=== PATIENT | female | born 1960 | race Caucasian/White ===

== ENCOUNTER 2020-08-13 10:00 | Outpatient (RCR) | payer MEDICARE, MEDICAID, SELFPAY ==
--- NOTE | 2020-09-20 14:47 | MHC.PT.DC ---
[facility] [place] Office [place] Office [place] Office [address] Marli Naik 140 [facility] [phone] F: [phone] F: [phone] F: [phone] F: [phone] Physical Therapy Discharge Report Diagnosis: Pain in Right leg Date of Surgery: N/A Date of Evaluation: 07/14/20 Date of Discharge: 08/31/20 Treatments to Date: 8 Cancellations to Date: 0 No Shows to Date: 1 Discharge Status: Discharge Summary: Pt elected to stop PT at this time. Electronically signed by: Dustin Stoddard, PT Please sign and return to therapist. Thank you for your referral.
== END 2020-09-20 14:47 | disposition home or self-care (01) ==
LOC: HO.PTCHIC 10:00
PROVIDERS: PCP Internal Medicine; Visit Provider Internal Medicine
DX: M79.604 Pain in right leg (principal)
CPT/HCPCS: 97035; 97110; 97140

== ENCOUNTER 2021-06-17 08:00 | Outpatient (RCR) | payer MEDICARE, MEDICAID, SELFPAY ==
--- NOTE | 2021-09-07 13:42 | MHC.PT.DC ---
[facility] [place] Office [place] Office [place] Office [address] Marli Naik [address] [phone] F: [phone] F: [phone] F: [phone] F: [phone] Physical Therapy Discharge Report Diagnosis: CERVICALGIA Date of Surgery: Date of Evaluation: 04/18/21 Date of Discharge: 06/17/21 Treatments to Date: 11 Cancellations to Date: 0 No Shows to Date: 1 Discharge Status: Independent with HEP Discharge Summary: Overall pain is 3/10 with ADLs, I with HEP and able to self correct posture/manage s/s. Pt progressed well over the course of skilled PT making progress on impairments and functional limitations resulting in an improved quality of life. Pt is I with HEP and appropriate to d/c to HEP at this time. Electronically signed by: Dustin Stoddard, PT Please sign and return to therapist. Thank you for your referral.
== END 2022-02-22 09:53 | disposition home or self-care (01) ==
LOC: HO.PTCHIC 08:00
PROVIDERS: PCP Internal Medicine; Visit Provider Internal Medicine
DX: M54.2 Cervicalgia (principal)
CPT/HCPCS: 97110; 97140; 97162; 97530

== ENCOUNTER 2022-01-23 18:53 | Emergency (ER) | payer MEDICARE, MEDICAID, SELFPAY ==
[2022-01-23 20:22] VITALS: BP 160/62; PULSE 67; RESP 18; TEMP 36.9; O2SAT 98; BMI 32.5
== END 2022-01-24 01:16 | disposition left against medical advice (07) ==
LOC: HO.ED 22:53
PROVIDERS: Emergency Provider Emergency Medicine; PCP Internal Medicine
DX: K62.5 Hemorrhage of anus and rectum (principal)
CPT/HCPCS: 99281; 99282

== ENCOUNTER 2022-06-27 15:07 | Emergency (ER) | payer OTHER, SELFPAY ==
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
[2022-06-27 15:13] VITALS: BP 128/58; BP 171/76; PULSE 64; PULSE 72; RESP 18; TEMP 36.6; O2SAT 96; O2SAT 98; BMI 32.5
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
[2022-06-27] MEDS: Acetaminophen 325 MG TABLET 975 MG PO (15:50)
[2022-06-27] MEDS: Ondansetron ODT 4 MG TAB.RAPDIS TRANSLINGU (15:50)
--- NOTE | 2022-06-27 16:03 | ECG_ITS ---
Test Reason : cp Blood Pressure : / mmHG Vent. Rate : 068 BPM Atrial Rate : 068 BPM P-R Int : 158 ms QRS Dur : 082 ms QT Int : 382 ms P-R-T Axes : 041 -04 023 degrees QTc Int : 406 ms Normal sinus rhythm Normal ECG When compared with ECG of 14-JAN-2016 10:49, No significant change was found Referred By: Juanita Henning Electronically Signed By:NAVDEEP HARRIS
== END 2022-06-27 21:41 | disposition home or self-care (01) ==
PROVIDERS: Emergency Provider Emergency Medicine
DX: R07.89 Other chest pain (principal); M54.50 Low back pain, unspecified; R51.9 Headache, unspecified; M25.512 Pain in left shoulder; M54.2 Cervicalgia; Z79.899 Other long term (current) drug therapy
CPT/HCPCS: 70450; 72100; 72125; 73030; 73080; 93005; 99283; 99284

== ENCOUNTER 2022-07-17 09:20 | Emergency (ER) | payer OTHER, SELFPAY ==
[2022-07-17 12:00] VITALS: BP 103/60; PULSE 87; RESP 18; TEMP 36.3; O2SAT 100; BMI 29.9
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
== END 2022-07-17 16:03 | disposition home or self-care (01) ==
PROVIDERS: Emergency Provider Internal Medicine; PCP Internal Medicine
DX: Z04.1 Encounter for examination and observation following transport accident (principal); G44.309 Post-traumatic headache, unspecified, not intractable; F07.81 Postconcussional syndrome; M79.10 Myalgia, unspecified site
CPT/HCPCS: 99282; 99283

== ENCOUNTER 2025-01-23 09:20 | Outpatient (AMB) | payer MEDICARE, SELFPAY ==
--- NOTE | 2025-01-23 10:08 | MHC.OFFWIV ---
Intake Vital Signs 01/23/25 10:11 Height 5 ft 2 in BMI Reason not done Patient refused/unable BP 142/80 H Blood Pressure Location Lt brachial Position Sitting Pulse 70 Pulse Source Pulse Oximeter Temp 98.1 F Temp Source Oral Pulse Oximetry (%) 97 Oxygen Delivery Method Room Air Intake Visit Reasons: EP Rectal bleeding Allergies carbamazepine [From TEGRETOL] Allergy (Unknown, Verified 01/23/25 10:08) SWELLING loratadine [From CLARITIN] Allergy (Unknown, Verified 01/23/25 10:08) UNKNOWN DUST, LATEX Allergy (Unknown, Uncoded 05/09/22 16:44) Swelling Do you need a note to return to daycare/school/sports/work: No HPI EP Rectal bleeding HPI Details This is a 64-year-old female patient who presents to the walk-in clinic today with rectal pain and bleeding with wiping. She states this started about 1 week ago, following having some constipation and hard stool. She states currently she is voiding and having soft BMs, however rectal area is painful when she has BMs. She denies any recent fevers, illnesses, vomiting, or diarrhea. Review of Systems Const All systems reviewed & are unremarkable except as noted in HPI and below Physical Exam Vital Signs: Last Vital Signs Temp 98.1 F 01/23/25 10:11 Pulse 70 01/23/25 10:11 BP 142/80 H 01/23/25 10:11 Pulse Ox 97 01/23/25 10:11 Oxygen Delivery Method Room Air 01/23/25 10:11 Const General: cooperative, healthy appearing, comfortable and no acute distress HEENT Head: Yes normal to inspection Resp Effort & Inspection: normal respiratory effort Auscultation: clear to auscultation bilaterally Cardio Rate: regular rate Rhythm: regular rhythm GI Rectal Exam - Female: External hemorrhoid(s) present and tenderness Skin General skin exam: no rashes or lesions noted Psych Appearance: grossly normal Mental Status: mental status grossly normal Speech and movement: Normal speech and movement present Assessment & Plan Assessment & Plan (1) Thrombosed external hemorrhoid: Code(s): K64.5 - Perianal venous thrombosis Plan: Topical lidocaine/hydrocortisone cream ordered. Patient educated on application/use of this. We reviewed fiber intake, adequate hydration, avoiding straining, proper cleansing. She has a follow up with her PCP at [facility] in 10 days on 02/02, whom she can follow-up with as needed for this. All questions were answered and patient verbalizes understanding and agrees to plan. Medications: New lidocaine HCl-hydrocortison ac 3-0.5 % (Lidocort) Apply to affected area twice a day. 1 appl topical BID 28.3 grams 0RF K64.5 - Perianal venous thrombosis Coding Level of Care Code Est Pt Level 4 (77938) Diagnoses Thrombosed external hemorrhoid K64.5
--- OUTSIDE RECORDS SUMMARY | 2025-01-23 10:08 | XMS_ITS | Encounter Summary ---
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 Installer Name Role Phone Kym Severino MD Primary Care Prov ider Reason for Visit * Reason Onset Date Comments Constipation 01/16/2025 Rectal Bleeding 01/16/2025 Abdominal Pain 01/16/2025 Encounter Details Date Type Department Care Team (Late st Contact Info) Description 01/16/2025 Telephone Adult Medicine [address] [phone] Kym Severino MD [address] [place] [phone] Constipation; Rectal Bleeding; Abdominal Pain Social History Tobacco Use Types Packs/Day Years Used Date Smoking Tobacco: Never Smokeless Tobacco: Never Alcohol Use Standard Drinks/Week Comments No 0 (1 standard drink = 0.6 oz pur e alcohol) Comments Unknown Sex and Gender Information Value Date Recorded Sex Assigned at Not on file Legal Sex Female 1:32 AM EST Gender Identity Not on file Sexual Orientation Not on file documented as of this encounter Progress Notes * Radha Pulido RN - 01/21/2025 9:50 AM EDT Spoke with the pt Bleeding from rectum not using any thing to sooth or help with the hemorrhoids Stomach is bloated at the top of the stomach Moves bowels every day, but when she pushes the stool she has bleeding. Advised OTC for home care of hemorrhoids. She is scheduled to see PCP on 02/02, added bloated concerns to the appt note * Radha Pulido RN - 01/16/2025 10:59 AM EDT Left vm for pt to return my call. * Gregory Dailey - 01/16/2025 10:40 AM EDT Patient call requires triage: Symptoms patient is presenting: constipation , rectal bleeding and abdominal pain How long has patient had these symptoms?: since 01/15/25 For ALL patients calling to schedule any appointment (routine, sick visit, follow up, consult, etc.) in the outpatient setting please ask the following questions: Do you have fever of higher than 101, sore throat with difficulty swallowing or severe shortness ofbreath? no If YES to any of these above symptoms, send a message to triage and do not book. Red dot. If no, an audio or video visit should be booked. Have you had close contact with someone with Coronavirus in the last 14 days? no Have you traveled abroad? no Have you traveled recently to another state outside of [place], [place], [place], [place], [place], [place]? no o If yes, did you quarantine for 14 days or have a negative covid test? no If yes to any of the above, patient is not to be scheduled in office until after 14 day quarantine or negative covid test. If pain or injury related was it due to an accident at work or from a motor vehicle accident? If yes, date of accident/Injury: No If yes, gather 3rd democrat insurance information [employer] Party Information: not applicable PCP: Kym Davis MD [facility] / Plan: [facility] ONE CARE / Product Type: *No Product type* / documented in this encounter Plan of Treatment Upcoming Encounters Date Type Department Care Team (Late st Contact Info) Description 02/02/2025 8:30 AM EDT Office Visit Adult Medicine [facility] [address] [place] [phone] Kym Severino MD [address] [place] [phone] documented as of this encounter Visit Diagnoses Not on filedocumented in this encounter Care Teams Composition Weatherboard Installer Relationship Specialty Start Date End Date Kym Severino MD PCP - General Internal Medicine 05/22/22 documented as of this encounter
--- OUTSIDE RECORDS SUMMARY | 2025-01-23 10:09 | XMS_ITS | Clinical Summary ---
Author Organization [facility] [address] [facility] Address [address] [place] [address] Phone Care Team Providers Care Cdl Dedicated Truck Driver Name Role Phone Kym Severino MD Primary Care Prov ider Allergies Active Allergy Reactions Criticality Noted Date Comments Adhesive Tape-Silicones 02/23/2016 Allergic to surgical tape /skin sam Carbamazepine Headache High 11/02/2015 Other Reaction(s): Myalgia and Joint Pain Loratadine 10/21/2012 tachycardia Povidone-Iodine Rash 02/23/2016 Medications calcium gluconate 50 mg calcium capsule Take 1 capsule by mouth 1 (one) time each day. 4 Active inhalat.spacing dev,large mask spacer Use with albuterol inhaler 0 Active lidocaine HCL (LidaFlex) 4 % adhesive patch,medicated Apply 1 patch topically 1 (one) time each day. 4 Active mirabegron (Myrbetriq) 25 mg 24 hr tablet Take by mouth. 2 Active ketoconazole (NIZORAL) 2 % creamIndication s:Tinea pedis USE TO AFFECTED AREAS OF THE SKIN ON THE FOOT TWICE DAILY 15 g 3 4 Active calcium citrate-vitamin D3 (CALTRATE MAXIMUM) 315 mg-6.25 mcg (250 unit) per tablet TAKE 1 TABLET BY MOUTH EVERY DAY 90 tablet 1 4 Active cyclobenzaprine (FLEXERIL) 10 mg tablet TAKE 1 TABLET BY MOUTH 3 TIMES DAILY NEEDED FOR MUSCLE SPASMS FOR UP TO 10 DAYS. 30 tablet 5 Active meclizine (ANTIVERT) 12.5 mg tablet TAKE 1 TABLET BY MOUTH 3 TIMES DAILY NEEDED (VERTIGO). 30 tablet 5 Active cholecalciferol (Vitamin D3) 25 mcg (1,000 unit) tablet Take 1 tablet (1,000 Units total) by mouth 1 (one) time each day. 90 tablet 1 5 Active acetaminophen (TYLENOL) 500 mg tablet Take 1 tablet (500 mg total) by mouth every 8 (eight) hours if needed for mild pain. 90 tablet 1 5 Active fluticasone propionate (FLONASE) 50 mcg/actuation nasal spray Administer 1 spray into each nostril 1 (one) time each day. Shake gently. Before first use, prime pump. After use, clean tip and replace cap. 48 g 5 Active cetirizine (ZyrTEC) 10 mg capsule Take 1 capsule (10 mg total) by mouth 1 (one) time each day if needed (allergies/nasa l congestion). 90 capsule 5 Active menthol (Biofreeze, menthol,) 4 % gel Apply 1 Dose topically 3 (three) times a day if needed (pain). 30 each 5 Active Active Problems Problem Noted Date Diagnosed Date Mild mitral insufficiency 09/18/2023 Overview (09/01/2024): Echo 09/18/2023 Mixed incontinence 06/28/2022 Overview (09/01/2024): PVU Thickened endometrium 04/26/2022 Overview (09/01/2024): Last Assessment & Plan: I discussed with the patient the ultrasound findings suggestive of blood within the uterus and thickened endometrium measuring 6 mm. I reviewed that these findings should be further evaluated with endometrial biopsy to rule out malignancy. She declines endometrial biopsy today. She expressed understanding and will return at a later time for endometrial biopsy. All questions answered. Elevated alkaline phosphatase level 08/20/2019 Osteopenia 08/20/2019 Varicose veins of both lower extremities 017 Hematuria 12/18/2014 Overview (09/01/2024): F/u [facility] Chronic back pain 10/28/2012 Hyperlipidemia 10/28/2012 Prediabetes 10/28/2012 Encounters Date Type Department Care Team Description 01/16/2025 Telephone Adult Medicine [address] [place] [address] Kym Severino MD Constipation; Rectal Bleeding; Abdominal Pain 12/26/2024 Telephone Adult Medicine [facility] [address] [place] [address] Ernestina Castillo LPN Fitting for DME (Faxed form from [employer]) from Last 3 Months Immunizations Name Administration Dates Next Due Influenza Quadravalent, MDCK , 0.5ml, preservative free (Flucelvax) 6mo and older 08/03/2022,12/23/2021,08/06/2019 Influenza trivalent, 0.5mL, preservative free (Fluarix; FluLaval; Fluzone) ages 6mo and older (Afluria) 3 years and older 07/23/2020,08/09/2014,07/02/2013,2011 [employer] SARS-CoV-2 COVID-19, mRNA, LNP-S, preservative free 02/10/2021 Tdap Tetanus diptheria acell ular pertussis (Boostrix; Adacel) 7yo and older 10/21/2012 Zoster recombinant (Shingrix ) 19yo and older 07/23/2020 Surgical History Surgery Date Site/Laterality Comments COLONOSCOPY 2012 PROCEDURE: MO COLONOSCOPY FLX DX W/COLLJ SPEC WHEN PFRMD; COMMENT: normal TUBAL LIGATION PROCEDURE: HISTORICAL TUBAL LIGATION OTHER SURGICAL HISTORY 2015 PROCEDURE: ---- OTHER ----; COMMENT: right leg varicose veins BREAST BIOPSY 2013 Left PROCEDURE: BX BREAST; PERC NEEDLE CORE W/IMAG GUID; COMMENT: neg Medical History Medical History Date Comments Pain of multiple sites 10/21/2012 DX:Pain o f multiple sites Headache(784.0) 10/21/2012 DX:Headache(784. 0) Prediabetes 10/28/2012 DX:Prediabetes Hyperlipidemia 10/28/2012 DX:Hyperlipidemi a Chronic back pain 10/28/2012 DX:Chronic laxmi k pain Varicose veins of both lower extremities 04/04/2017 DX:Varicose veins of both lo wer extremities Mixed incontinence 06/28/2022 DX:Mixed inco ntinence Mild mitral insufficiency 09/18/2023 DX:Mil d mitral insufficiency; COMMENT: Echo 09/18/2023 Family History Medical History Relation Name Comments No Known Problems Brother Cataracts Daughter 1 No Known Problems Daughter 2 Stroke Father Diabetes Mother No Known Problems Sister x2 Breast cancer Neg Hx Colon cancer Neg Hx Ovarian cancer Neg Hx Strabismus Neg Hx Relation Name Status Comments Brother Alive Daughter 1 Alive Daughter 2 Alive Father Mother Sister Alive Social History Tobacco Use Types Packs/Day Years Used Date Smoking Tobacco: Never Smokeless Tobacco: Never Alcohol Use Standard Drinks/Week Comments No 0 (1 standard drink = 0.6 oz pur e alcohol) Comments Unknown Sex and Gender Information Value Date Recorded Sex Assigned at Not on file Legal Sex Female 1:32 AM EST Gender Identity Not on file Sexual Orientation Not on file Obstetrics History Last Filed Vital Signs Vital Sign Reading Time Taken Comments Blood Pressure 130/64 05/28/2024 11:04 AM EDT Pulse 71 05/28/2024 11:04 AM EDT Temperature - - Respiratory Rate - - Oxygen Saturation - - Inhaled Oxygen Concentration - - Weight 74 kg (163 lb 3.2 oz) 05/28/2024 11:04 AM EDT Height 157.5 cm (5' 2 ) 01/28/2024 9:46 AM EDT Body Mass Index 29.85 01/28/2024 9:46 AM EDT Plan of Treatment Upcoming Encounters Date Type Department Care Team (Late st Contact Info) Description 02/02/2025 8:30 AM EDT Office Visit Adult Medicine [address] [phone] Kym Severino MD [address] [place] [phone] Health Maintenance Due Date Last Done Comments Pneumococcal Vaccine: 50+ Years (1 of 2 - PCV) 1980 Pneumococcal Vaccine: Pediatrics (0 to 5 Years) and At-Risk Patients (6 to 64 Years) (1 of 2 - PCV) 1980 Zoster Vaccines (2 of 2) 09/17/2020 07/23/2020 Colorectal Cancer Screening: FIT-DNA (Cologuard) 09/30/2022 HIV Screening 09/30/2022 Medicare Annual Wellness Visit 09/30/2022 Social Influencers of Health Screening 09/30/2022 DTaP,Tdap,and Td Vaccines (2 - Td or Tdap) 10/21/2022 10/21/2012 COVID-19 Vaccine ( season) 2024 02/12/2021, 02/10/2021, 01/21/2021 Depression Screening 10/02/2024 10/02/2023 Breast Cancer Screening 06/04/2025 06/04/20 23, 05/30/2022, 01/20/2021, Additional history exists Influenza Vaccine (Season Ended) 2025 08/03/2022, 12/23/2021, 07/23/2020, Additional history exists Cervical Cancer Screening: HPV 02/14/2027 02/14/2022 Cholesterol Screening (Lipid Panel) 04/28/2029 04/28/2024, 04/28/2024 RSV Immunization Adult Patients (1 - 1-dose 75+ series) 2036 Hepatitis C Screening Completed 07/30/2014 Colorectal Cancer Screening: Colonoscopy Discontinued 08/21/2023 HIB Vaccines Aged Out No longer eligi ble based on patient's age to complete this topic HPV Vaccines Aged Out No longer eligi ble based on patient's age to complete this topic Hepatitis A Vaccines Aged Out No long er eligible based on patient's age to complete this topic Hepatitis B Vaccines Aged Out No long er eligible based on patient's age to complete this topic IPV Vaccines Aged Out No longer eligi ble based on patient's age to complete this topic MMR Vaccines Aged Out No longer eligi ble based on patient's age to complete this topic Meningococcal ACWY Vaccine Aged Out N o longer eligible based on patient's age to complete this topic Meningococcal B Vacine Aged Out No lo nger eligible based on patient's age to complete this topic RSV Immunization Patients Under 20 months Aged Out No longer eligible based on patient's age to complete this topic Varicella Vaccines Aged Out No longer eligible based on patient's age to complete this topic Procedures Procedure Name Priority Date/Time Associated Diagnosis Comments LIPID PANEL Routine 04/28/2024 DEPRESSION SCREENING Routine 10/02/2023 COLONOSCOPY Routine 08/21/2023 SCREENING MAMMOGRAPHY BI 2-VIEW BREAST INC CAD Routine 06/04/2023 3:49 PM EDT Encounter for screening mammogram for malignant neoplasm of breast HPV Routine 02/14/2022 HEPATITIS C SCREENING Routine 07/30/2014 from Last 3 Months or Most Recently Relevant to Health Maintenance Results * (ABNORMAL) Lipid panel (04/28/2024) LDL/HDL Ratio 4 0 - 4 Triglycerides 79 0 - 150 mg/dL Cholesterol 231(A) 0 - 200 mg/dL HDL 63 >=40 mg/dL LDL Cholesterol 153(A) 0 - 100 mg/dL Blood Venous blood specimen / Unknown Historical Provider LAB BLOOD ORDERABLES Genoveva l Result * Depression Screening (10/02/2023) Depression Screening Abstracted Historical Provider HEALTH MAINTENANCE Final Result * Colonoscopy (08/21/2023) Colonoscopy No interpretation , abstracted Anatomical Region Laterality Modality Other Historical Provider HEALTH MAINTENANCE Final Result * SCREENING MAMMOGRAPHY BI 2-VIEW BREAST INC CAD (06/04/2023 3:49 PM EDT) Anatomical Region Laterality Modality Radiographic Loretta ging 05/30/2022 3:06 PM EDT Narrative 06/05/2023 9:48 AM EDT This is a summary report. The complete report is available in the patient's medical record. If you cannot access the medical record, please contact the sending organization for a detailed fax or copy. Study: SCREENING MAMMOGRAPHY BI 2-VIEW BREAST INC CAD Technique: Bilateral full-field digital screening mammography is obtained and read in conjunction with computer aided detection. ??Tomosynthesis as well as 2D C-View imaging were obtained. Comparison: Comparison made to multiple prior, most recent May 30, 2022, and most remote December 19, 2018. Breast composition: The breast tissue is heterogeneously dense, which may obscure small masses. Right breast: No suspicious masses, suspicious calcifications or other abnormalities are seen. Left breast: Tissue marker from previous needle core biopsy. ??No suspicious masses, suspicious calcifications or other abnormalities are seen. IMPRESSION: Impression: Bilateral breasts: Benign, no specific mammographic evidence of malignancy. ??Normal interval follow-up is recommended in 12 months. BI-RADS: Category 2: Benign Procedure Note Coleman Morales MD - 11/27/2023 This is a summary report. The complete report is available in thepatient's medical record. If you cannot access the medical record, pleasecontact the sending organization for a detailed fax or copy. Study: SCREENING MAMMOGRAPHY BI 2-VIEW BREAST INC CAD Technique: Bilateral full-field digital screening mammography is obtainedand read in conjunction with computer aided detection. Tomosynthesis aswell as 2D C-View imaging were obtained. Comparison: Comparison made to multiple prior, most recent May 30, 2022,and most remote December 19, 2018. Breast composition: The breast tissue is heterogeneously dense, which mayobscure small masses. Right breast: No suspicious masses, suspicious calcifications or otherabnormalities are seen. Left breast: Tissue marker from previous needle core biopsy. Nosuspicious masses, suspicious calcifications or other abnormalities areseen. IMPRESSION: Impression: Bilateral breasts: Benign, no specific mammographic evidence ofmalignancy. Normal interval follow-up is recommended in 12 months. BI-RADS: Category 2: Benign Kym Severino MD IMG XR PROCEDURES Final Result * Cervical Cancer Screening: HPV (02/14/2022) Pathologist [facility] Cervical Cancer Screening: HPV Negative, abstracted Historical Provider HEALTH MAINTENANCE Final Result * Hepatitis C Screening (07/30/2014) [facility] Hepatitis C Screening Abstracted Historical Provider HEALTH MAINTENANCE Final Result from Last 3 Months or Most Recently Relevant to Health Maintenance Insurance [facility] MEDICARE Member Subscriber Plan / Payer (Ef fective 2022-Present) Name:Brenda Bowles Relation to Subscriber:Self Name:Brenda Bowles Payer ID:[id number] Group ID:[id number] Type:Not on file Address: [place] [address] [address] [id number] Care Teams Cdl Dedicated Truck Driver Relationship Specialty Start Date End Date Kym Severino MD PCP - General Internal Medicine 05/22/22
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
[2025-01-23 10:11] VITALS: BP 142/80; PULSE 70; TEMP 36.7; O2SAT 97
== END 2025-01-23 10:55 | disposition home or self-care (01) ==
PROVIDERS: PCP Internal Medicine; Visit Provider Nurse Practitioner Family
DX: K64.5 Perianal venous thrombosis (principal)

== ENCOUNTER → 2025-01-23 09:20 | Outpatient (BNVA) | payer MEDICARE, SELFPAY | PROVIDERS: PCP Internal Medicine | DX: K64.5 Perianal venous thrombosis (principal) | CPT/HCPCS: 99212 ==

== ENCOUNTER 2025-05-12 13:16 | Outpatient (AMB) | payer OTHER, SELFPAY ==
[2025-05-12 13:40] VITALS: BP 136/70; PULSE 66; TEMP 36.9; O2SAT 97; BMI 30.2
--- NOTE | 2025-05-12 13:40 | MHC.OFFWIV ---
Intake Vital Signs 05/12/25 13:40 Height 5 ft 2 in Weight 165 lb BMI 30.2 BP 136/70 Blood Pressure Location Rt brachial Position Sitting Pulse 66 Pulse Source Pulse Oximeter Temp 98.5 F Temp Source Oral Pulse Oximetry (%) 97 Oxygen Delivery Method Room Air Intake Visit Reasons: EP pain on RT ear & high BP Intake Note: presents with RT ear pain, headaches, sore throat with pain swallowing. also c/o sore tongue after biting it 3 days ago Skilled Nursing Case Manager Required: Yes Allergies latex Allergy (Mild, Verified 05/12/25 13:53) Rash carbamazepine (From TEGRETOL) Allergy (Unknown, Verified 05/12/25 13:41) SWELLING loratadine (From CLARITIN) Allergy (Unknown, Verified 05/12/25 13:41) UNKNOWN Do you need a note to return to daycare/school/sports/work: No HPI HPI Comments History of Present Illness Details History of Present Illness - The patient is a 64-year-old female presenting with headache and sore throat. - The headache is recent, with associated symptoms of facial pain and ear pain. - The sore throat is linked to a yellow discoloration on her tongue and ulcers on the tongue. - She has been eating and drinking. - No fever was noted, and the patient uses nasal spray for sinus conditions. - She has no fever or chills. - She has no CP, SOB, abd pain, n/v/d, dizziness, or cough. Physical Exam General: Cooperative, healthy appearing, comfortable, no acute distress and well developed Ears: Normal TMs bilaterally. No discharge noted. Nose: Normal external nose present. Mouth: Thrush noted on the tongue, yellowish white discolration. Large ulcer noted on the right tongue on the underside. Uvula is midline. Pharnyx is pink with no exudates. Face and sinus: No TTP of the sinuses bilaterally. Eyes: Appearance normal, both eyes and all related structures Neck: Normal visual inspection and Yes full ROM. No lymphadenopathy noted. Respiratory: Normal respiratory effort and able to speak in complete sentences. Clear to auscultation bilaterally Cardiovascular: Regular rate and rhythm. Normal S1 and S2 Skin: No rashes or lesions noted Neuro: Patient oriented x3. CN 2-12 intact Patient was informed and verbally consented to the use of an ambient scribe for clinic note documentation during this visit. Review of Systems Const All systems reviewed & are unremarkable except as noted in HPI and below Physical Exam Vital Signs: Last Vital Signs Temp 98.5 F 05/12/25 13:40 Pulse 66 05/12/25 13:40 BP 136/70 05/12/25 13:40 Pulse Ox 97 05/12/25 13:40 Oxygen Delivery Method Room Air 05/12/25 13:40 BMI result Body Mass Index 30.2 Assessment & Plan Assessment & Plan (1) Aphthous ulcer: Code(s): K12.0 - Recurrent oral aphthae (2) Thrush: Code(s): B37.0 - Candidal stomatitis Plan Most likely mouth ulcers and thrush Plan - Initiate antifungal therapy for oral candidiasis, potentially with a medicated mouthwash - Tylenol or motrin for pain relief for headache and ear discomfort. - follow up with PCP Medications: New nystatin administer 1/2 of dose in each side of the mouth 5 mL buccal qid 140 mL 0RF 7 days Magic Mouthwash Diphen/Lido/Antacid 1:1:1 Lidocaine Viscous 2 % 80mL; diphenhydramine 12.5 mg/5 mL 80mL; aluminum-mag hydrox-simeth [id number]/5mL 80mL 5 mL PO Q6-8H 240 mL 0RF Coding Level of Care Code Est Pt Level 3 (83991) Diagnoses Aphthous ulcer K12.0 Thrush B37.0
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
--- OUTSIDE RECORDS SUMMARY | 2025-05-12 14:21 | XMS_ITS | Encounter Summary ---
Author Organization [facility] Address [address] [place] [address] Phone Care Team Providers Care Assistant Community Manager Name Role Phone Kym Severino MD Primary Care Prov ider Encounter Details Date Type Department Care Team (Late st Contact Info) Description 02/11/2025 Procedure [facility], [facility] Scan - [facility] [address] [place] [address] Social History Tobacco Use Types Packs/Day Years Used Date Smoking Tobacco: Never Smokeless Tobacco: Never Alcohol Use Standard Drinks/Week Comments No 0 (1 standard drink = 0.6 oz pur e alcohol) Education Answer Date Recorded Are you interested in more education? Not on thomas e 02/16/2023 Are you concerned about learning? Not on file 02/16/2023 No 02/16/2023 No 02/16/2023 Food Answer Date Recorded Within the past 6 months we worried whether our food would run out before we got money to buy more. Never True 02/11/2025 Within the past 6 months the food we bought just didn't last and we didn't have enough money to get more. Never True Residential Stability Answer Date Recor ded What is your housing situation today? I have martha sing 02/11/2025 How many times have you move d in the past 12 months? Zero (I did not move) 02/11/2025 Paying for Meds Answer Date Recorded Do you have trouble paying for medicines? Yes 02/11/2025 Paying Utility Bills Answer Date Record ed Do you have trouble paying your heating or elect ricity bill? No 02/11/2025 Transportation Answer Date Recorded Has the lack of transportati on kept you from medical appointments or from getting medications? No 02/11/2025 Digital Access Answer Date Recorded No 02/11/2025 Yes 02/11/2025 Do you have reliable internet access at home? Ye s 02/11/2025 Do you have a device (e.g., phone, tablet, computer) with a working camera? Yes 02/11/2025 Intimate Partner Violence Answer Date R ecorded Are you denied basic needs s uch as food, clothing, or medical care? No 02/11/2025 In the past 12 months have y ou been in a relationship with a person who hurts, threatens, or tries to control you? No 02/11/2025 Are you denied basic needs s uch as food, clothing, or medical care? No 02/11/2025 In the past 12 months have y ou been in a relationship with a person who hurts, threatens, or tries to control you? No 02/11/2025 Comments No Sex and Gender Information Value Date Recorded Sex Assigned at Female 10/29/2017 9:38 AM EST Legal Sex Female 9:46 PM EDT Gender Identity Female 10/29/2017 9:38 AM EST Sexual Orientation Straight 10/29/2017 9: 38 AM EST documented as of this encounter Functional Status * Calculated C-SSRS Risk Score (Lifetime/Recent) Answer Date of Assessment Author No Risk Indicated 02/11/2025 1:30 PM EDT Marie Galvan RN * [place] Suicide Severity Rating Scale (Screener/Recent Self-Report) Question Answer Date of Assessment Author 1. Wish to be (Past 1 Month) No 02/11/2025 1:30 PM EDT Marie Galvan RN 2. Non-Specific Active Suici kalen Thoughts (Past 1 Month) No 02/11/2025 1:30 PM EDT Marie Galvan, RN 6. Suicidal Behavior (Lifetime) No 1:30 PM EDT Marie Galvan, RN documented as of this encounter Plan of Treatment Not on file documented as of this encounter Visit Diagnoses Not on filedocumented in this encounter Care Teams Assistant Community Manager Relationship Specialty Start Date End Date Kym Severino MD [address] [place] [id number] PCP - General Internal Medicine 05/19/24 documented as of this encounter Additional Source Comments The information contained in this document represents components of the legal health record. It is not the complete legal health record.[facility]
--- OUTSIDE RECORDS SUMMARY | 2025-05-12 14:21 | XMS_ITS | Clinical Summary ---
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 11/08/19 24 Active mirabegron (Myrbetriq) 25 mg 24 hr tablet Take by mouth. 03/16/20 22 Active ketoconazole (NIZORAL) 2 % creamIndicatio ns:Tinea pedis USE TO AFFECTED AREAS OF THE SKIN ON THE FOOT TWICE DAILY 15 g 3 10/07/20 24 Active acetaminophen (TYLENOL) 500 mg tablet Take 1 tablet (500 mg total) by mouth every 8 (eight) hours if needed for mild pain. 90 tablet 1 11/10/19 25 Active fluticasone propionate (FLONASE) 50 mcg/actuation nasal spray Administer 1 spray into each nostril 1 (one) time each day. Shake gently. Before first use, prime pump. After use, clean tip and replace cap. 48 g 11/10/19 25 Active cetirizine (ZyrTEC) 10 mg capsule Take 1 capsule (10 mg total) by mouth 1 (one) time each day if needed (allergies/nasa l congestion). 90 capsule 11/10/19 25 Active menthol (Biofreeze, menthol,) 4 % gel Apply 1 Dose topically 3 (three) times a day if needed (pain). 30 each 11/10/19 25 Active Vitamin D3 25 mcg (1,000 unit) tablet TAKE 1 TABLET BY MOUTH EVERY DAY 90 tablet 1 01/24/20 25 Active pravastatin (PRAVACHOL) 20 mg tablet Take 1 tablet (20 mg total) by mouth 1 (one) time each day. 90 each 1 02/06/20 25 025 Active ketorolac (ACULAR) 0.5 % ophthalmic solution INSTILL 1 DROP INTO BOTH EYES 3 TIMES A DAY 02/20/20 25 Active hydrocortisone (ANUSOL-HC) 2.5 % rectal cream Insert into the rectum 4 (four) times a day if needed for hemorrhoids (rectal discomfort). Apply to affected areas 30 g 03/12/20 25 026 Active bisacodyL (DULCOLAX) 5 mg EC tablet Take 1 tablet (5 mg total) by mouth 1 (one) time each day if needed for constipation. Do not crush, chew, or split. 30 tablet 03/12/20 25 025 Active meclizine (ANTIVERT) 12.5 mg tablet TAKE 1 TABLET BY MOUTH 3 TIMES DAILY NEEDED (VERTIGO). 30 tablet 1 04/27/20 25 Active cyclobenzaprin e (FLEXERIL) 5 mg tabletIndicati ons:Chronic bilateral low back pain without sciatica TAKE 1 TABLET BY MOUTH AT BEDTIME NEEDED FOR MUSCLE SPASMS FOR UP TO 30 DAYS. 30 tablet 04/27/20 25 Active Vitamin D3 25 mcg (1,000 unit) capsule TAKE 1 TABLET (1,000 UNITS TOTAL) BY MOUTH DAILY 90 capsule 1 04/27/20 25 Active calcium citrate-vitami n D3 (CALTRATE MAXIMUM) 315 mg-6.25 mcg (250 unit) per tablet TAKE 1 TABLET BY MOUTH EVERY DAY 90 tablet 1 04/27/20 25 Active calcium citrate-vitami n D3 (CALTRATE MAXIMUM) 315 mg-6.25 mcg (250 unit) per tablet TAKE 1 TABLET BY MOUTH EVERY DAY 90 tablet 1 10/07/20 24 025 Discontinued meclizine (ANTIVERT) 12.5 mg tablet TAKE 1 TABLET BY MOUTH 3 TIMES DAILY NEEDED (VERTIGO). 30 tablet 11/10/19 25 025 Discontinued cyclobenzaprin e (FLEXERIL) 5 mg tabletIndicati ons:Chronic bilateral low back pain without sciatica Take 1 tablet (5 mg total) by mouth at bedtime as needed for muscle spasms for up to 30 doses. 30 tablet 03/12/20 25 025 Discontinued Active Problems Problem Noted Date Diagnosed Date ALEJO (headache) 03/05/2025 Rectocele 02/17/2025 Assessment & Plan (02/17/2025 3:22 PM EDT): Very mild. I suspect it is worse with straining. Reviewed options for pelvic organ prolapse including observation, as long as not having difficulty emptying or significant discomfort, pessary fitting, vs surgical intervention. Given she is minimally symptomatic, she desires to observe for now, but will call if she desires pessary fitting in the future. Other constipation 02/17/2025 Assessment & Plan (02/17/2025 3:23 PM EDT): I explained that the area of discomfort likely represents stool in colon. CT supports this. I recommended she work on bowel regimen and follow up with GI as scheduled. Given Rx for Colace and Miralax. Encouraged to increase water to 64 oz daily and add a fiber supplement. She agreed. Anal fissure 02/17/2025 Assessment & Plan (02/17/2025 3:24 PM EDT): Soften stools and address with GI when she sees them. Mild mitral insufficiency 09/18/2023 Overview (09/01/2024): Echo [...] extremities 017 Hematuria 12/18/2014 Overview (09/01/2024): F/u [facility] Chronic back pain 10/28/2012 Hyperlipidemia 10/28/2012 Assessment & Plan (02/02/2025 8:53 AM EDT): LDL 153. Currently not on medicatons. Lifestyle modifications were previously discussed. ASCVD risk: 4.3%. Will recheck levels. Orders: CBC and differential; Future Basic metabolic panel; Future Lipid panel with reflex to direct LDL; Future Prediabetes 10/28/2012 Assessment & Plan (02/02/2025 8:53 AM EDT): Last A1C: 5.6. Healthy diet and regular exercise were discussed with the patient. Will recheck levels. Orders: Hemoglobin A1c; Future Resolved Problems Problem Noted Date Diagnosed Date Resolved Date Anal fissure and fistula 02/17/2025 Encounters Date Type Department Care Team Description 04/29/2025 Telephone Adult Medicine [address] [phone] Kym Heaton MD Fitting for DME 03/12/2025 9:30 AM EDT Office Visit Adult Medicine [address] [phone] Kym Heaton MD Anal fissure (Primary Dx); Rectal bleeding; Other constipation; Chronic bilateral low back pain without sciatica 03/11/2025 Telephone Adult Medicine [address] [phone] Kym Heaton MD Black or Bloody Stool (Blood in stool today ); er follow-up (Eri Scherer on 03/09/25) 03/09/2025 Telephone Gastroenterology - [address] [facility] [address] [place] [address] Adelita Luo MA Results 03/05/2025 2:32 PM EDT Anesthesia Event [facility] [address] [place] [address] Tiffani Allen MD Hayes, Brett L, MANAGER EMPLOYMENT 03/05/2025 12:15 PM EDT - 03/05/2025 11:59 PM EDT Hospital Encounter [facility] [address] [place] [address] Cliff Zimmerman MD Hayes, Brett L, Tiffani Burr MD Colon cancer screening Discharge Disposition: Home or Self Care 03/04/2025 Telephone Urogynecology - [address] [place] [address] Nataly Avilez NP 03/03/2025 4:44 PM EDT - 03/03/2025 11:59 PM EDT Hospital Encounter Radiology Department - [address] [phone] Hematuria, unspecified type Discharge Disposition: Home or Self Care 03/03/2025 1:30 PM EDT Procedure visit Urogynecology - [address] [phone] Kathrin Boucher MD Asymptomatic microscopic hematuria (Primary Dx) 02/19/2025 1:00 PM EDT Office Visit Urogynecology [address] [phone] Nataly Avilez NP Other constipation (Primary Dx); Muscle dysfunction; Rectocele; Hematuria, unspecified type 02/18/2025 8:30 AM EDT Office Visit Adult Medicine [address] [place] [address] Stacy Thompson PA Rectocele (Primary Dx); Lower abdominal pain; Hemorrhoids, unspecified hemorrhoid type; Slow transit constipation 02/18/2025 Telephone Adult Medicine [address] [phone] Stacy Thompson PA 02/17/2025 10:00 AM EDT Office Visit Obstetrics and Gynecology - [address] [phone] Sayda Benavides MD Rectocele (Primary Dx); Other constipation; Anal fissure 02/11/2025 12:38 PM EDT - 02/11/2025 12:41 PM EDT Emergency [facility] Emergency [address] [place] [address] Discharge Disposition: ED Dismiss - Diverted Elsewhere 02/11/2025 Telephone Adult Medicine [address] [phone] Kym Heaton MD Abdominal Pain from Last 3 Months Immunizations Name Administration Dates Next Due Influenza Quadravalent, MDCK , 0.5ml, preservative free (Flucelvax) 6mo and older 08/03/2022,12/23/2021,08/06/2019 Influenza Quadrivalent, 0.5m l, preservative free (Fluarix; FluLaval; Fluzone) ages 6mo and older (Afluria) 3yo and older 07/23/2020 Influenza trivalent, 0.5mL, preservative free (Fluarix; FluLaval; Fluzone) ages 6mo and older (Afluria) 3 years and older 07/23/2020,08/09/2014,07/02/2013,2011 Influenza trivalent, with preservative (Fluzone; Afluria) 6mo and older 08/09/2014,07/02/2013,10/21/2012 PPD Test 03/13/2016,08/05/2014 Pfizer SARS-CoV-2 COVID-19, mRNA, LNP-S, preservative free 02/10/2021 Tdap Tetanus diptheria acell ular pertussis (Boostrix; Adacel) 7yo and older 10/21/2012 Zoster recombinant (Shingrix ) 19yo and older 07/23/2020 Surgical History Surgery Date Site/Laterality Comments COLONOSCOPY 2012 PROCEDURE: DC COLONOSCOPY FLX DX W/COLLJ SPEC WHEN PFRMD; [...] Date Smoking Tobacco: Never Smokeless Tobacco: Never Tobacco Cessation:Counseling Given: Not Answered Alcohol Use Standard Drinks/Week Comments No 0 (1 standard drink = 0.6 oz pur e alcohol) Housing Instability Answer Date Recorde d Are you worried that in the next 2 months you may not have stable housing? No 02/02/2025 Food Access & Nutrition Answer Date Rec orded Do you have access to a vari ety of food including fruits and vegetables? Yes 02/02/2025 Health Literacy Answer Date Recorded How often do you need to hav e someone help you when you read instructions, pamphlets, or other written material from your doctor or pharmacy? Never 02/02/2025 Caregiver: How often do you need to have someone help you when you read instructions, pamphlets, or other written material from your doctor or pharmacy? Not on file 02/02/2025 Financial Risk Answer Date Recorded How hard is it for you to pa y for the very basics like food, housing, medical care, and air conditioning / heating? Not very hard 02/02/2025 Transportation Answer Date Recorded Has the lack of transportati on kept you from meetings, work, or from getting things needed for daily living? No Has the lack of transportati on kept you from medical appointments or from getting medications? No 02/02/2025 Social Isolation Answer Date Recorded How often do you feel lonely or isolated from th ose around you? Never 02/02/2025 Food Risk Answer Date Recorded Within the past 12 months we worried whether our food would run out before we got money to buy more. Never true 02/02/2025 Within the past 12 months th e food we bought just didn't last and we didn't have money to get more. Never true 02/02/2025 Dependent Care Answer Date Recorded Do you need help finding or paying for care for your loved ones. For example, child care associate teacher or elderly care for an older adult? No 02/02/2025 Education Answer Date Recorded Do you think completing more education or training, like finishing a GED, going to college, or learning a trade, would be helpful for you? No 02/02/2025 Employment and Income Answer Date Recor ded During the last four weeks, have you been actively looking for work? No 02/02/2025 Living Situation Answer Date Recorded What is your living situation? 0 02/02/2025 Interpersonal Safety Answer Date Record ed Physical Abuse 03/05/2025 Verbal Abuse 03/05/2025 Comments No Sex and Gender Information Value Date Recorded Sex Assigned at Not on file Legal Sex Female 1:32 AM EST Gender Identity Not on file Sexual Orientation Not on file Obstetrics History Para Term AB IAB SAB Ectopic Multiple Livin g Live Births 4 4 4 4 Date Outcome GA Total Labor Labor/2nd/3rd Weight Sex Type Anes PTL Es A1 A5 Name Clin Term Term Term Term Last Filed Vital Signs Vital Sign Reading Time Taken Comments Blood Pressure 117/52 03/12/2025 9:15 AM EDT Pulse 73 03/12/2025 9:15 AM EDT Temperature 36.8 C (98.2 F) 03/12/2025 9:15 AM EDT Respiratory Rate 13 03/12/2025 9:15 AM EDT Oxygen Saturation 98% 03/05/2025 3:15 PM EDT Inhaled Oxygen Concentration - - Weight 73.8 kg (162 lb 12.8 oz) 03/12/2025 9:15 AM EDT Height 157.5 cm (5' 2 ) 03/12/2025 9:15 AM EDT Body Mass Index 29.78 03/12/2025 9:15 AM EDT Plan of Treatment Upcoming Encounters Date Type Department Care Team (Late st Contact Info) Description 05/14/2025 7:30 AM EDT Office Visit Adult Medicine [address] [phone] Kym Severino MD [address] [place] [address] 06/09/2025 9:30 AM EDT Office Visit Adult [address] [phone] Kym Severino MD [address] [place] [address] 02/11/2026 4:30 PM EDT Appointment Radiology Department - [address] [phone] Health Maintenance Due Date Last Done Comments Pneumococcal Vaccine: 50+ Years (1 of 1 - PCV) 2011 Zoster Vaccines (2 of 2) 09/17/2020 07/23/2020 HIV Screening 09/30/2022 Medicare Annual Wellness Visit 09/30/2022 DTaP,Tdap,and Td Vaccines (2 - Td or Tdap) 10/21/2022 10/21/2012 Influenza Vaccine (#1) 2025 2, 12/23/2021, 07/23/2020, Additional history exists Social Influencers of Health Screening 02/02/2026 02/02/2025 Colorectal Cancer Screening: FIT-DNA (Cologuard) 08/21/2026 08/21/2023, 08/21/2023 Breast Cancer Screening 02/05/2027 02/06/20 25, 06/04/2023, 05/30/2022, Additional history exists Cervical Cancer Screening: HPV 02/14/2027 02/14/2022 Cholesterol Screening (Lipid Panel) 02/05/2030 02/05/2025, 02/02/2025, 04/28/2024, Additional history exists RSV Immunization Adult Patients (1 - 1-dose 75+ series) 2036 Hepatitis C Screening Completed 07/30/2014 COVID-19 Vaccine Discontinued 02/10/2021, 01/21/2021 Depression Screening Completed 02/02/2025, 10/02/20 23 Colorectal Cancer Screening: Colonoscopy Discontinued 03/05/2025, 08/21/2023 HIB Vaccines Aged Out No longer [...] age to complete this topic Meningococcal B Vaccine Aged Out No l onger eligible based on patient's age to complete this topic RSV Immunization Patients Under 20 months Aged Out No longer eligible based on patient's age to complete this topic Varicella Vaccines Aged Out No longer eligible based on patient's age to complete this topic Procedures Procedure Name Priority Date/Time Associated Diagnosis Comments COLONOSCOPY Routine 03/05/2025 2:54 PM EDT Colon cancer screening TISSUE EXAM Routine 03/05/2025 2:44 PM EDT Colon cancer screening US RETROPERITONEAL COMPLETE Routine 03/03/2025 5:37 PM EDT Hematuria, unspecified type URINALYSIS MICROSCOPIC ONLY Routine 02/19/2025 2:50 PM EDT Hematuria, unspecified type URINALYSIS MICROSCOPIC ONLY Routine 02/19/2025 2:50 PM EDT Hematuria, unspecified type CULTURE URINE Routine 02/19/2025 2:50 PM EDT Hematuria, unspecified type POC URINE AUTO W/O MICRO Routine 02/19/2025 2:49 PM EDT Hematuria, unspecified type MG MAMMO DIGITAL SCREENING W ABDULAZIZ BILAT Routine 02/05/2025 6:16 PM EDT Screening mammogram, encounter for LIPID PANEL WITH REFLEX TO DIRECT LDL Routine 02/05/2025 2:11 PM EDT Mixed hyperlipidemia HM DEPRESSION SCREENING Routine 10/02/2023 HM HPV Routine 02/14/2022 HEPATITIS C SCREENING Routine 07/30/2014 from Last 3 Months or Most Recently Relevant to Health Maintenance Results * COLONOSCOPY Anesthesia - MAC; [facility] ENDOSCOPY (03/05/2025 2:54 PM EDT) Anatomical Region Laterality Modality Endoscopy 03/05/2025 2:36 PM EDT Impressions 03/05/2025 2:59 PM EDT - One 11 mm polyp in the cecum, removed piecemeal using a hot snare. Resected and retrieved. Clip (MR conditional) was placed. 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 - The examination was otherwise normal on direct and retroflexion views. Recommendation: - Await pathology results. - Repeat colonoscopy in 6 months for surveillance. Narrative 03/05/2025 2:59 PM EDT [facility] GI Patient Name: Moy Bowles Procedure Date: 03/05/2025 2:36 PM Date of : 1960 Age: 64 Room: ROOM 15 Gender: Female Note Status: Finalized Attending MD: Cliff Zimmerman MD, Procedure Date No Time: 03/05/2025 Procedure: Colonoscopy Indications: Screening for colorectal malignant neoplasm Providers: Cliff Zimmerman MD Referring MD: Clfif Zimmerman MD Medicines: Propofol per Anesthesia Complications: No immediate complications. Estimated Blood Loss: Estimated blood loss was minimal. Procedure: Pre-Anesthesia Assessment: - ASA Grade Assessment: II - A patient with mild systemic disease. After I obtained informed consent, the scope was passed under direct vision. Throughout the procedure, the patient's blood pressure, pulse, and oxygen saturations were monitored continuously.The Colonoscope was introduced through the anus and advanced to the cecum, identified by appendiceal orifice and ileocecal valve. The colonoscopy was performed without difficulty. The patient tolerated the procedure well. The quality of the bowel preparation was good. Findings: The perianal and digital rectal examinations were normal. An 11 mm polyp was found in the cecum. The polyp was sessile. The polyp was removed with a piecemeal technique using a hot snare. Resection and retrieval were complete. To prevent bleeding after the polypectomy, one hemostatic clip was successfully placed (MR conditional). 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 There was no bleeding at the end of the procedure. The polyp was adjacent (1 cm to the right of) the appendiceal orifice and it seemed a bit firm and infiltrative but it appeared to be fully removed with the second snare. The exam was otherwise without abnormality on direct and retroflexion views. Procedure Code(s): --- Professional --- 44374, Colonoscopy, flexible; with removal of tumor(s), polyp(s), or other lesion(s) by snare technique Diagnosis Code(s): --- Professional --- Z12.11, Encounter for screening for malignant neoplasm of colon D12.0, Benign neoplasm of cecum CPT copyright 2020 [employer]. All rights reserved. The codes documented in this report are preliminary and upon boiler fireman review may be revised to meet current compliance requirements. Cliff Zimmreman MD 03/05/2025 2:59:15 PM This report has been signed electronically.Cliff Zimmerman MD Number of Addenda: 0 Note Initiated On: 03/05/2025 2:36 PM Scope In: Scope Out: Endoscopy Department at [facility] - [address] [place] [phone] Procedure Note Cliff Zimmerman MD - 03/05/2025 [facility] GI Patient Name: Moy Bowles Procedure Date: 03/05/2025 2:36 PM Date of : 1960 Age: 64 Room: ROOM 15 Gender: Female Note Status: Finalized Attending MD: Cliff Zimmerman MD, Procedure Date No Time: 03/05/2025 Procedure: Colonoscopy Indications: Screening for colorectal malignant neoplasm Providers: Cliff Zimmerman MD Referring MD: Cliff Zimmerman MD Medicines: Propofol per Anesthesia Complications: No immediate complications. Estimated Blood Loss: Estimated blood loss was minimal. Procedure: Pre-Anesthesia Assessment: - ASA Grade Assessment: II - A patient with mild systemic disease. After I obtained informed consent, the scope was passed under direct vision. Throughout theprocedure, the patient's blood pressure, pulse, and oxygen saturations were monitored continuously.The Colonoscope was introduced through the anus and advanced to the cecum, identified by appendiceal orifice and ileocecal valve. The colonoscopy was performed without difficulty. The patient tolerated the procedure well. The quality of the bowel preparation was good. Findings: The perianal and digital rectal examinations were normal. An 11 mm polyp was found in the cecum. The polypwas sessile. The polyp was removed with a piecemeal technique using a hot snare. Resection andretrieval were complete. To prevent bleeding after the polypectomy, one hemostatic clip was successfully placed (MR conditional). 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 There was no bleeding at the end of the procedure. The polyp was adjacent (1 cm to the right of) the appendiceal orifice and it seemed a bit firm and infiltrative but it appeared to be fully removedwith the second snare. The exam was otherwise without abnormality ondirect and retroflexion views. Procedure Code(s): --- Professional --- 25073, Colonoscopy, flexible; with removal of tumor(s), polyp(s), or other lesion(s) by snare technique Diagnosis Code(s): --- Professional --- Z12.11, Encounter for screening for malignantneoplasm of colon D12.0, Benign neoplasm of cecum CPT copyright 2020 [employer]. All rights reserved. The codes documented in this report are preliminary and upon boiler fireman reviewmay be revised to meet current compliance requirements. Cliff Zimmerman MD 03/05/2025 2:59:15 PM This report has been signed electronically.Cliff Zimmerman MD Number of Addenda: 0 Note Initiated On: 03/05/2025 2:36 PM Scope In: Scope Out: Endoscopy Department at [facility] - [address] [place] [phone] IMPRESSION: - One 11 mm polyp in the cecum, removed piecemeal using a hot snare. Resected and retrieved. Clip (MR conditional) was placed. 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 - The examination was otherwise normal on directand retroflexion views. Recommendation: - Await pathology results. - Repeat colonoscopy in 6 months forsurveillance. us Cilff Zimmerman MD GI~PROCEDURE ORDERABLES Fin al Result * Tissue exam (03/05/2025 2:44 PM EDT) Final Diagnosis Colon, cecum polyp: Benign inflammatory polyp 03/09/2025 8:59 AM EDT [facility] Gross Description A. Large Intestine, Cecum, polyp: Labeled colon, cecum polyp . Received in formalin are seven soft to rubbery, dodge-brown tissue fragments ranging from 0.2 cm to 0.6 cm, in greatest diameters, which are wrapped in paper and submitted in toto in one cassette, seven pieces, multiple levels. dvb/DG 03/09/2025 8:59 AM EDT [facility] Disclaimer Unless otherwise specified, all tissue is 10% NB formalin fixed and paraffin embedded. 03/09/2025 8:59 AM EDT [facility] Tissue Cecum structure / Unknown 03/05/2025 2:44 PM EDT 03/05/2025 3:51 PM EDT us Cliff Zimmerman MD LAB PATHOLOGY ORDERABLES Fi nal Result [facility] ([facility]) [facility] [address] [place] [address], [place] [phone] * US Retroperitoneal Complete (03/03/2025 5:37 PM EDT) Anatomical Region Laterality Modality Body Ultrasound 03/04/2025 7:29 AM EDT Impressions 03/04/2025 7:32 AM EDT Mild bilateral hydronephrosis. -------- FINAL REPORT -------- Dictated By: Coleman Morales Dictated Date: 03/04/2025 07:29 ET Assigned Physician: Coleman Morales Reviewed and Electronically Signed By: Coleman Morales Signed Date: 03/04/2025 07:32 ET Workstation ID: [id number] Transcribed By: Self Edit Transcribed Date: 03/04/2025 07:29 ET Narrative 03/04/2025 7:32 AM EDT US RETROPERITONEAL COMPLETE TECHNIQUE: Complete ultrasound evaluation of the retroperitoneum was performed. COMPARISON: Ultrasound on November 18, 2019 Reason for the study: hydronephrosis FINDINGS: RIGHT KIDNEY: Size: 10.1 cm. Mild hydronephrosis. No shadowing stones. LEFT KIDNEY: Size: 10.3 cm. Mild hydronephrosis. No shadowing stones. BLADDER: Urinary bladder is well distended without wall thickening. Ureteral jets not seen. Prevoid urinary bladder volume measures 449 cc. Post void volume of 9 cc. Procedure Note Coleman Morales MD - 03/04/2025 US RETROPERITONEAL COMPLETE TECHNIQUE: Complete ultrasound evaluation of the retroperitoneum was performed. COMPARISON: Ultrasound on November 18, 2019 Reason for the study: hydronephrosis FINDINGS: RIGHT KIDNEY: Size: 10.1 cm. Mild hydronephrosis. No shadowing stones. LEFT KIDNEY: Size: 10.3 cm. Mild hydronephrosis. No shadowing stones. BLADDER: Urinary bladder is well distended without wall thickening.Ureteral jets not seen. Prevoid urinary bladder volume measures 449 cc.Post void volume of 9 cc. IMPRESSION: Mild bilateral hydronephrosis. -------- FINAL REPORT -------- Dictated By: Coleman Morales Dictated Date: 03/04/2025 07:29 ET Assigned Physician: Coleman Morales Reviewed and Electronically Signed By: Coleman Morales Signed Date: 03/04/2025 07:32 ET Workstation ID: [id number] Transcribed By: Self Edit Transcribed Date: 03/04/2025 07:29 ET us Nataly Avilez FOREST MANAGER IMG US PROCEDURES Final Re sult * (ABNORMAL) Urinalysis microscopic only (02/19/2025 2:50 PM EDT) RBC, Urine 6.3(H) 0 - 4 /HPF LAB URINALYSIS - AUTOMATED METHOD 02/19/2025 7:02 PM EDT [facility] WBC, Urine 0.2 0 - 4 /HPF LAB URINALYSIS - AUTOMATED METHOD 02/19/2025 7:02 PM EDT [facility] Squamous Epithelial, Urine 7 0 - 60 /LPF LAB URINALYSIS - AUTOMATED METHOD 02/19/2025 7:02 PM EDT [facility] Bacteria, Urine Negative Negative /HPF LAB URINALYSIS - AUTOMATED METHOD 02/19/2025 7:02 PM EDT [facility] Hyaline Casts, Urine 0.4 0 - 3 /LPF LAB URINALYSIS - AUTOMATED METHOD 02/19/2025 7:02 PM EDT [facility] Urine Urinary bladder structure / Unknown Non-blood Collection / Unknown 02/19/2025 2:50 PM EDT 02/19/2025 2:50 PM EDT us Nataly Avilez NP LAB URINE ORDERABLES Final Result [facility] [address] [place] [address], [place] [phone] * Culture urine (02/19/2025 2:50 PM EDT) Culture, Urine No growth 02/21/2025 10:22 AM EDT [facility] Urine Urinary bladder structure / Unknown Non-blood Collection / Unknown 02/19/2025 2:50 PM EDT 02/19/2025 2:50 PM EDT Nataly Avilez NP LAB MICROBIOLOGY - GENERAL ORDERABLES Final Result [facility] [address] [place] [address], [place] [phone] * (ABNORMAL) POC Urine Auto W/O Micro (02/19/2025 2:49 PM EDT) Glucose UA POC Negative Negative, Trace mg/dL Bilirubin UA POC Negative Negative, Small Ketones UA POC Negative Negative, Trace Specific Bethany UA POC 1.015 Blood UA POC 3+(A) Negative, Large PH UA POC 6.0 Protein UA POC Negative Negative, >=300 mg/dL Urobilinogen UA POC 0.2 E.U./dL mg/dL Nitrite UA POC Negative Negative Leukocytes UA POC Negative Negative Urine Urine specimen obtained by clean catch procedure / Unknown 02/19/2025 2:49 PM EDT Nataly Avilez NP POINT OF CARE TEST ENTER/E DIT ORDERABLES Final Result * MG Mammo Digital Screening w Abdulaziz bilat (02/05/2025 6:16 PM EDT) Anatomical Region Laterality Modality Breast Bilateral Mammography 02/06/2025 4:06 PM EDT Impressions 02/06/2025 4:09 PM EDT No mammographic evidence of malignancy. BI-RADS CATEGORY: 1 - NEGATIVE RECOMMENDATION: Screening bilateral mammogram is recommended in 1 year. Mammo Location: [facility], [address] [place] [address], [id number], . -------- FINAL REPORT -------- Dictated By: Yuli Gaitan Dictated Date: 02/06/2025 16:06 ET Assigned Physician: Yuli Gaitan Reviewed and Electronically Signed By: Yuli Gaitan Signed Date: 02/06/2025 16:09 ET Workstation ID: [id number] Transcribed By: Self Edit Transcribed Date: 02/06/2025 16:06 ET Narrative 02/06/2025 4:09 PM EDT Screening mammogram. CLINICAL: 64 years old, Female, routine annual exam. COMPARISON: Prior mammograms, latest from 06/04/2023. TECHNIQUE: Bilateral MLO and CC views were obtained digitally with 2-D C views and 3-D mammogram (digital breast tomosynthesis). Computer-aided detection was utilized in evaluation of this exam (CAD). FINDINGS: There is no evidence of suspicious mass or architectural distortion. No worrisome calcifications are evident. There has been no significant change from prior exam(s). BREAST DENSITY: C - The breasts are heterogeneously dense which may obscure small masses. Procedure Note Yuli Gaitan MD - 02/06/2025 Screening mammogram. CLINICAL: 64 years old, Female, routine annual exam. COMPARISON: Prior mammograms, latest from 06/04/2023. TECHNIQUE: Bilateral MLO and CC views were obtained digitally with 2-D Cviews and 3-D mammogram (digital breast tomosynthesis). Computer-aideddetection was utilized in evaluation of this exam (CAD). FINDINGS: There is no evidence of suspicious mass or architectural distortion. Noworrisome calcifications are evident. There has been no significantchange from prior exam(s). BREAST DENSITY: C - The breasts are heterogeneously dense which mayobscure small masses. IMPRESSION: No mammographic evidence of malignancy. BI-RADS CATEGORY: 1 - NEGATIVE RECOMMENDATION: Screening bilateral mammogram is recommended in 1 year. Mammo Location: [facility], [address] [place] [address], [id number], . -------- FINAL REPORT -------- Dictated By: Yuli Gaitan Dictated Date: 02/06/2025 16:06 ET Assigned Physician: Yuli Gaitan Reviewed and Electronically Signed By: Yuli Gaitan Signed Date: 02/06/2025 16:09 ET Workstation ID: [id number] Transcribed By: Self Edit Transcribed Date: 02/06/2025 16:06 ET Kym Severino MD IMG BI PROCEDURES Final Result * (ABNORMAL) Lipid panel with reflex to direct LDL (02/05/2025 2:11 PM EDT) Cholesterol 215(H) 0 - 200 mg/dL LAB CHEMISTRY METHOD 02/05/2025 5:45 PM EDT [facility] Triglycerides 92 0 - 150 mg/dL LAB CHEMISTRY METHOD 02/05/2025 5:45 PM EDT [facility] HDL 56 >=40 mg/dL LAB CHEMISTRY METHOD 02/05/2025 5:45 PM EDT [facility] LDL Calculated 141(H) 0 - 100 mg/dL LAB CHEMISTRY METHOD 02/05/2025 5:45 PM EDT [facility] VLDL Cholesterol Jason 18.4 mg/dL LAB CHEMISTRY METHOD 02/05/2025 5:45 PM EDT [facility] Non HDL Chol. (LDL+VLDL) 159(H) <145 mg/dL LAB CHEMISTRY METHOD 02/05/2025 5:45 PM EDT [facility] Chol/HDL Ratio 3.8 0.0 - 4.4 LAB CHEMISTRY METHOD 02/05/2025 5:45 PM EDT [facility] Blood Venous blood specimen / Unknown Venipuncture / Unknown 02/05/2025 2:11 PM EDT 02/05/2025 2:11 PM EDT us Kym Severino MD LAB BLOOD ORDERABL ES Final Result [facility] [address] [place] [address], * Depression Screening (10/02/2023) Pathologist [facility] Depression Screening Abstracted Historical Provider HEALTH MAINTENANCE Final Result * Cervical Cancer Screening: HPV (02/14/2022) Pathologist [facility] Cervical Cancer Screening: HPV Negative, abstracted Historical Provider HEALTH MAINTENANCE Final Result * Hepatitis C Screening (07/30/2014) Pathologist [facility] Hepatitis C Screening Abstracted Historical Provider HEALTH MAINTENANCE Final Result from Last 3 Months or Most Recently Relevant to Health Maintenance Insurance [facility] MEDICARE Member Subscriber Plan / Payer (Ef fective 2022-Present) Name:VASILIY BOWLESANA Relation to Subscriber:Self Name:Moy Bowles Payer ID:[id number] Group ID:[id number] Type:Not on file Address: [place] [address] [address] [id number] 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
== END 2025-05-12 15:24 | disposition home or self-care (01) ==
PROVIDERS: PCP Internal Medicine; Visit Provider Physician Assistant Medical
DX: K12.0 Recurrent oral aphthae (principal); B37.0 Candidal stomatitis; Z13.9 Encounter for screening, unspecified

== ENCOUNTER → 2025-05-12 13:16 | Outpatient (BNVA) | payer OTHER, SELFPAY | PROVIDERS: PCP Internal Medicine; Visit Provider Physician Assistant Medical | DX: K12.0 Recurrent oral aphthae (principal); B37.0 Candidal stomatitis; R51.9 Headache, unspecified | CPT/HCPCS: 87880; 99212 ==

== ENCOUNTER 2025-08-06 14:51 | Outpatient (AMB) | payer OTHER, SELFPAY ==
--- NOTE | 2025-08-06 15:04 | AM.OFFWIN_ITS ---
Intake Vital Signs 08/06/25 15:08 Height 5 ft 2 in Weight 163 lb 8 oz BMI 29.9 BP 124/58 L Blood Pressure Location Lt brachial Position Sitting Pulse 66 Pulse Source Pulse Oximeter Temp 98.1 F Temp Source Oral Pulse Oximetry (%) 98 Oxygen Delivery Method Room Air Intake Visit Reasons: EP swelling of RT eye Intake Note: Patient presents with pain, swelling around & under right eye, itching x2 days Allergies latex Allergy (Mild, Verified 08/06/25 15:13) Rash carbamazepine (From TEGRETOL) Allergy (Unknown, Verified 08/06/25 15:13) SWELLING loratadine (From CLARITIN) Allergy (Unknown, Verified 08/06/25 15:13) UNKNOWN Do you need a note to return to daycare/school/sports/work: No HPI HPI Comments History of Present Illness Details History of Present Illness - The patient is a 64-year-old female pr esenting with swelling and pain in the eye. - The patient reports feeling something in the eye, followed by swelling on the upper eyelid. - The swelling has progressed to include pain, but vision remains unaffected. - She was seen by her eye doctor benita eduardo and her vision was fine in the office. - No discharge or crusting was observed, although the patient experiences pain. - The patient has a history of cataract surgery with lens implantation. - She denies blurry or double vision. - She has no discharge. Physical Exam General: Cooperative, healthy appearing, comfortable, no acute distress and well developed Orientation: Patient oriented x3 Limitations: No limitations Head: Normal to inspection Eyes: Swelling and pain noted on the right eye. Bump on the right upper eyelid on the inner lid. PERRLA, EOMI. Sclera is white, conjunctiva is pink No discharge noted. Neck: Normal visual inspection and Yes full ROM. No lymphadenopathy noted. Respiratory: Normal respiratory effort and able to speak in complete sentences. Clear to auscultation bilaterally Cardiovascular: Regular rate and rhythm. Normal S1 and S2 Skin: Erythema noted on the upper eyelid and swelling noted under the eyelid on the right. Patient was informed and verbally consented to the use of an ambient scribe for clinic note documentation during this visit. Review of Systems Const All systems reviewed & are unremarkable except as noted in HPI and below Physical Exam Vital Signs: Last Vital Signs Temp 98.1 F 08/06/25 15:08 Pulse 66 10/16/25 15:08 BP 124/58 L 08/06/25 15:08 Pulse Ox 98 08/06/25 15:08 Oxygen Delivery Method Room Air 08/06/25 15:08 BMI result Body Mass Index 29.9 Assessment & Plan Assessment & Plan (1) Hordeolum: Code(s): H00.019 - Hordeolum externum unspecified eye, unspecified eyelid Qualifiers: Hordeolum type: internum Laterality: right Eyelid: upper Qualified Code(s): H00.021 - Hordeolum internum right upper eyelid (2) Cellulitis: Code(s): L03.90 - Cellulitis, unspecified Qualifiers: Site of cellulitis: periorbital Laterality: right Qualified Code(s): L03.213 - Periorbital cellulitis Plan Most likely a hordeolum which is the cause of cellulitis plan - warm compresses to the area - tylenol or motrin as needed - keflex 500 mg QID for 7 days - erythromycin ointment 4 times a day for 7 days - follow up with her eye doctor Medications: New cephalexin 500 mg PO Q6H 28 caps 0RF erythromycin Apply to left eye 4 times a day while awake 0.5 inches ophthalmic (eye) QID 3.5 grams 0RF Coding Level of Care Code Est Pt Level 3 (36156) Diagnoses Hordeolum internum of right upper eyelid H00.021 Hordeolum type: internum Laterality: right Eyelid: upper Periorbital cellulitis of right eye L03.213 Site of cellulitis: periorbital Laterality: right
[2025-08-06 15:08] VITALS: BP 124/58; PULSE 66; TEMP 36.7; O2SAT 98; BMI 29.9
--- OUTSIDE RECORDS SUMMARY | 2025-08-06 18:42 | XMS_ITS | Encounter Summary ---
Author Organization [facility] Address [address] [place] [address] Phone Care Team Providers Care Hris Manager Name Role Phone Kym Severino MD Primary Care Prov ider Encounter Details Date Type Department Care Team (Late st Contact Info) Description 02/11/2025 Procedure Pass [facility], Ct Scan - [facility] [address] [place] [address] Social History Tobacco Use Types Packs/Day Years [...] 1:30 PM EDT Marie Galvan RN * [employer] Suicide Severity Rating Scale (Screener/Recent Self-Report) Question [...] on filedocumented in this encounter Care Teams Hris Manager Relationship Specialty Start Date End Date Kym Severino MD [address] [place] [id number] PCP - General Internal Medicine 05/19/24 documented as of this encounter Additional Source Comments The information contained in this document represents components of the legal health record. It is not the complete legal health record.[facility]
--- OUTSIDE RECORDS SUMMARY | 2025-08-06 18:42 | XMS_ITS ---
Author Name [facility] Organization Unknown Allergies Allergen Reaction Severity Comment Documented Date Source Statu s POVIDONE-IODINE RASH [facility]23[facility]2016 [facility] CARBAMAZEPINE HEADACHE Other Reaction(s): Myalgia and Joint Pain 11/02/2015 [facility] active LORATADINE tachycardia 10/21/2012 [facility] brianna ADHESIVE TAPE-SILICONES Allergic to surgical tape /skin sam [facility] Immunizations Vaccine Date Source Lot Number Status Influenza Quadravalent, MDCK , 0.5ml, preservative free (Flucelvax) 6mo and older 08/03/20[facility] [id number] completed Influenza Quadravalent, MDCK , 0.5ml, preservative free (Flucelvax) 6mo and older 12/23/2021 [facility] [id number] completed [employer] SARS-CoV-2 COVID-19, mRNA, LNP-S, preservative free 02/10/2021 [facility] completed Influenza Quadrivalent, 0.5m l, preservative free (Fluarix; FluLaval; Fluzone) ages 6mo and older (Afluria) 3yo and older 07/23/2020 [facility] [id number] completed Influenza trivalent, 0.5mL, preservative free (Fluarix; FluLaval; Fluzone) ages 6mo and older (Afluria) 3 years and older 07/23/2020 [facility] [id number] completed Zoster recombinant (Shingrix ) 19yo and older 07/23/2020 [facility] [id number] completed Influenza Quadravalent, MDCK , 0.5ml, preservative free (Flucelvax) 6mo and older 08/06/2019 [facility] [id number] completed PPD Test 03/13/2016 [facility] [id number] completed Influenza trivalent, 0.5mL, preservative free (Fluarix; FluLaval; Fluzone) ages 6mo and older (Afluria) 3 years and older 08/09/2014 [facility] [id number] completed Influenza trivalent, with pr eservative (Fluzone; Afluria) 6mo and older 08/09/2014 [facility] [id number] completed PPD Test 08/05/2014 [facility] [id number] completed Influenza trivalent, 0.5mL, preservative free (Fluarix; FluLaval; Fluzone) ages 6mo and older (Afluria) 3 years and older 07/02/2013 [facility] [id number] completed Influenza trivalent, with pr eservative (Fluzone; Afluria) 6mo and older 07/02/2013 [facility] [id number] completed Influenza trivalent, 0.5mL, preservative free (Fluarix; FluLaval; Fluzone) ages 6mo and older (Afluria) 3 years and older 10/21/2012 [facility] [id number] completed Influenza trivalent, with pr eservative (Fluzone; Afluria) 6mo and older 10/21/2012 [facility] [id number] completed Tdap Tetanus diptheria acell ular pertussis (Boostrix; Adacel) 7yo and older 10/21/2012 [facility] [id number] completed
--- OUTSIDE RECORDS SUMMARY | 2025-08-06 18:42 | XMS_ITS | Clinical Summary ---
Author Organization [facility] [address] [facility] Address [address] [place] [address] Phone Care Team Providers Care Ecologist Technician Name Role Phone Kym Severino MD Primary Care Prov ider Allergies Active Allergy Reactions Criticality Noted Date Comments Adhesive Tape-Silicones 02/23/2016 Allergic to surgical tape /skin sam Carbamazepine Headache High 11/02/2015 Other Reaction(s): Myalgia and Joint Pain Loratadine 10/21/2012 tachycardia Povidone-Iodine Rash 02/23/2016 Medications inhalat.spaci ng dev,large mask spacer Use with albuterol inhaler 12/09/19 20 Active lidocaine HCL (LidaFlex) 4 % adhesive patch,medicat ed Apply 1 patch topically 1 (one) time each day. 11/08/19 24 Active mirabegron (Myrbetriq) 25 mg 24 hr tablet Take by mouth. 03/16/20 22 Active acetaminophen (TYLENOL) 500 mg tablet Take 1 tablet (500 mg total) by mouth every 8 (eight) hours if needed for mild pain. 90 tablet 1 11/10/19 25 Active cetirizine (ZyrTEC) 10 mg capsule Take 1 capsule (10 mg total) by mouth 1 (one) time each day if needed (allergies/carolina al congestion). 90 capsule 11/10/19 25 Active menthol (Biofreeze, menthol,) 4 % gel Apply 1 Dose topically 3 (three) times a day if needed (pain). 30 each 11/10/19 25 Active ketorolac (ACULAR) 0.5 % ophthalmic solution INSTILL 1 DROP INTO BOTH EYES 3 TIMES A DAY 02/20/20 Active meclizine (ANTIVERT) 12.5 mg tablet TAKE 1 TABLET BY MOUTH 3 TIMES DAILY NEEDED (VERTIGO). 30 tablet 1 04/27/20 25 Active cyclobenzapri ne (FLEXERIL) 5 mg tabletIndicat ions:Chronic bilateral low back pain without sciatica TAKE 1 TABLET BY MOUTH AT BEDTIME NEEDED FOR MUSCLE SPASMS FOR UP TO 30 DAYS. 30 tablet 04/27/20 25 Active Vitamin D3 25 mcg (1,000 unit) capsule TAKE 1 TABLET (1,000 UNITS TOTAL) BY MOUTH DAILY 90 capsule 1 04/27/20 25 Active calcium citrate-vitam in D3 (CALTRATE MAXIMUM) 315 mg-6.25 mcg (250 unit) per tablet TAKE 1 TABLET BY MOUTH EVERY DAY 90 tablet 1 04/27/20 25 Active nystatin (MYCOSTATIN) 100,000 unit/mL suspension 05/12/20 Active lidocaine (XYLOCAINE) 2 % solution 05/12/20 25 Active phenoL (Chloraseptic Throat Garland) 1.4 % aerosol,spray Place 1 spray into mouth between cheek and gum every 2 (two) hours if needed (prn). 05/14/20 25 Active fluticasone propionate (FLONASE) 50 mcg/actuation nasal spray Administer 1 spray into each nostril 1 (one) time each day. Shake gently. Before first use, prime pump. After use, clean tip and replace cap. 48 g 2 05/14/20 25 Active LORazepam (ATIVAN) 0.5 mg tablet Take 1 tablet (0.5 mg total) by mouth 2 (two) times a day if needed for anxiety. Max Daily Amount: 1 mg 10 tablet 07/01/20 25 Active ketoconazole (NIZORAL) 2 % creamIndicati ons:Tinea pedis USE TO AFFECTED AREAS OF THE SKIN ON THE FOOT TWICE DAILY 15 g 3 07/27/20 25 Active hydrocortison e (ANUSOL-HC) 2.5 % rectal cream Insert into the rectum 4 (four) times a day if needed for hemorrhoids (rectal discomfort). Apply to affected areas 30 g 1 07/27/20 25 026 Active pravastatin (PRAVACHOL) 20 mg tablet TAKE 1 TABLET (20 MG TOTAL) BY MOUTH ONE TIME EACH DAY 90 tablet 1 08/06/20 25 Active ketoconazole (NIZORAL) 2 % creamIndicati ons:Tinea pedis USE TO AFFECTED AREAS OF THE SKIN ON THE FOOT TWICE DAILY 15 g 3 10/07/20 24 025 Discontinued(Re order) pravastatin (PRAVACHOL) 20 mg tablet Take 1 tablet (20 mg total) by mouth 1 (one) time each day. 90 each 1 02/06/20 25 025 Discontinued hydrocortison e (ANUSOL-HC) 2.5 % rectal cream Insert into the rectum 4 (four) times a day if needed for hemorrhoids (rectal discomfort). Apply to affected areas 30 g 1 03/12/20 25 025 Discontinued(Re order) bisacodyL (DULCOLAX) 5 mg EC tablet Take 1 tablet (5 mg total) by mouth 1 (one) time each day if needed for constipation. Do not crush, chew, or split. 60 tablet 05/14/20 025 Active Problems Problem Noted Date Diagnosed Date [...] extremities 017 Hematuria 12/18/2014 Overview (09/01/2024): F/u [facility] Chronic back pain 10/28/2012 Hyperlipidemia 10/28/2012 Assessment & Plan (05/14/2025 8:07 AM EDT): Currently on Pravastatin 20mg day, pending repeat labs next month. Assessment & Plan (02/02/2025 8:53 AM EDT): [...] Encounters Date Type Department Care Team Description 07/23/2025 Telephone Adult Medicine [address] [phone] Kym Heaton MD 06/30/2025 Telephone Adult Medicine [address] [phone] Kym Heaton MD 05/14/2025 7:30 AM EDT Office Visit Adult Medicine [address] [phone] Kym Heaton MD Adult general medical examination (Primary Dx); Mixed hyperlipidemia from Last 3 Months Immunizations Immunization Administration Dates Next Due Influenza Quadravalent, MDCK [...] 6mo and older 08/09/2014,07/02/2013,10/21/2012 PPD Test 03/13/2016,08/05/2014 Insta[employer]U SARS-CoV-2 COVID-19, mRNA, LNP-S, preservative free 02/10/2021 Tdap Tetanus diptheria acell ular pertussis (Boostrix; Adacel) 7yo and older 10/21/2012 Zoster recombinant (Shingrix ) 19yo and older 07/23/2020 Surgical History Surgery Date Site/Laterality Comments COLONOSCOPY 2012 PROCEDURE: [place] COLONOSCOPY FLX DX W/COLLJ SPEC WHEN PFRMD; [...] for your loved ones. For example, child and family services specialist or elderly care for an older adult? [...] Date Recorded What is your living situation? Unrecognized valu e 02/02/2025 Interpersonal Safety Answer Date Record ed Physical Abuse Unrecognized value 03/05/2025 Verbal Abuse Unrecognized value 03/05/2025 Comments No Sex and Gender Information [...] Sign Reading Time Taken Comments Blood Pressure 134/67 05/14/2025 7:30 AM EDT Pulse 66 05/14/2025 7:30 AM EDT Temperature 36.2 C (97.2 F) 05/14/2025 7:30 AM EDT Respiratory Rate 15 05/14/2025 7:30 AM EDT Oxygen Saturation 98% 03/05/2025 3:15 PM EDT Inhaled Oxygen Concentration - - Weight 73 kg (161 lb) 05/14/2025 7:30 AM EDT Height 157.5 cm (5' 2 ) 05/14/2025 7:30 AM EDT Body Mass Index 29.45 05/14/2025 7:30 AM EDT Plan of Treatment Upcoming Encounters Date Type Department Care Team (Late st Contact Info) Description 11/16/2025 9:45 AM EST Office Visit Adult Medicine East - [address] [phone] Kym Severino MD [address] [place] [address] 02/11/2026 4:30 PM EDT Appointment Radiology Department - [address] [phone] Health Maintenance Due Date Last Done Comments Pneumococcal Vaccine: 50+ Years (1 of 1 - PCV) 2011 Zoster Vaccines (2 of 2) 09/17/2020 07/23/2020 HIV Screening 09/30/2022 DTaP,Tdap,and Td Vaccines (2 - Td or Tdap) 10/21/2022 10/21/2012 Influenza Vaccine (#1) 2025 2, 12/23/2021, 07/23/2020, Additional history exists Social Influencers of Health Screening 02/02/2026 02/02/2025 Colorectal Cancer Screening: FIT-DNA (Cologuard) 08/21/2026 08/21/2023, 08/21/2023 Breast Cancer Screening 02/05/2027 02/06/20 25, 06/04/2023, 05/30/2022, Additional history exists Cervical Cancer Screening: HPV 02/14/2027 02/14/2022 Medicare Annual Wellness Visit 05/14/2027 Postponed from 09/30/2022 (Not clinically appropriate to address at this time) Cholesterol Screening (Lipid Panel) 07/09/2030 07/09/2025, 02/05/2025, 02/02/2025, Additional history exists RSV Immunization Adult Patients (1 - 1-dose 75+ series) 2036 Hepatitis C Screening Completed 07/30/2014 COVID-19 Vaccine Discontinued 02/10/2021, 01/21/2021 Depression Screening Completed 02/02/2025, 10/02/20 Colorectal Cancer Screening: Colonoscopy Discontinued 03/05/2025, 08/21/2023 [...] Procedure Name Priority Date/Time Associated Diagnosis Comments COMPREHENSIVE METABOLIC PANEL Routine 07/09/2025 8:17 AM EDT Mixed hyperlipidemia LIPID PANEL WITH REFLEX TO DIRECT LDL Routine 07/09/2025 8:17 AM EDT Mixed hyperlipidemia COLONOSCOPY Routine 03/05/2025 2:54 PM EDT Colon cancer screening MG MAMMO DIGITAL SCREENING W ABDULAZIZ BILAT Routine 02/05/2025 6:16 PM EDT Screening mammogram, encounter for DEPRESSION SCREENING Routine 10/02/2023 HPV Routine 02/14/2022 HEPATITIS C SCREENING Routine 07/30/2014 from Last 3 Months or Most Recently Relevant to Health Maintenance Results * (ABNORMAL) Lipid panel with reflex to direct LDL (07/09/2025 8:17 AM EDT) Cholesterol 241(H) 0 - 200 mg/dL LAB CHEMISTRY METHOD 07/09/2025 10:56 AM EDT [facility] Triglycerides 82 0 - 150 mg/dL LAB CHEMISTRY METHOD 07/09/2025 10:[address] [facility] HDL 71 >=40 mg/dL LAB CHEMISTRY METHOD 07/09/2025 10:[address] [facility] LDL Calculated 154(H) 0 - 100 mg/dL LAB CHEMISTRY METHOD 07/09/2025 10:56 AM EDT [facility] Comment:Estimated LDL Calcul ated using equation: Total cholesterol - HDL cholesterol - (Triglycerides/5) VLDL Cholesterol Jason 16.4 mg/dL LAB CHEMISTRY METHOD 07/09/2025 10:[address] [facility] Non HDL Chol. (LDL+VLDL) 170(H) <145 mg/dL LAB CHEMISTRY METHOD 07/09/2025 10:[address] [facility] Chol/HDL Ratio 3.4 0.0 - 4.4 LAB CHEMISTRY METHOD 07/09/2025 10:[address] [facility] Blood Venous blood specimen / Unknown Venipuncture / Unknown 07/09/2025 8:17 AM EDT 07/09/2025 8:17 AM EDT us Kym Severino MD LAB BLOOD ORDERABL ES Final Result [facility] [address] [place] [address], * (ABNORMAL) Comprehensive metabolic panel (07/09/2025 8:17 AM EDT) Sodium 138 133 - 145 mmol/L LAB CHEMISTRY METHOD 07/09/2025 10:[address] [facility] Potassium 3.6 3.5 - 5.5 mmol/L LAB CHEMISTRY METHOD 07/09/2025 10:[address] [facility] Chloride 102 96 - 110 mmol/L LAB CHEMISTRY METHOD 07/09/2025 10:[address] [facility] CO2 28 21 - 32 mmol/L LAB CHEMISTRY METHOD 07/09/2025 10:[address] [facility] Anion Gap 8 3 - 11 LAB CHEMISTRY METHOD 07/09/2025 10:[address] [facility] Glucose 103(H) 70 - 100 mg/dL LAB CHEMISTRY METHOD 07/09/2025 10:[address] [facility] BUN 13 5 - 25 mg/dL LAB CHEMISTRY METHOD 07/09/2025 10:[address] [facility] Creatinine 0.67 0.50 - 1.10 mg/dL LAB CHEMISTRY METHOD 07/09/2025 10:[address] [facility] eGFR 98 >=60 mL/min/1. 73m2 LAB CHEMISTRY METHOD 07/09/2025 10:[address] [facility] Comment:Calculation based on the Chronic Kidney Disease Epidemiology Collaboration (CKD-EPI) equation refit without adjustment for race. BUN/Creatinine Ratio 19.4 LAB CHEMISTRY METHOD 07/09/2025 10:[address] [facility] Calcium 9.2 8.5 - 10.5 mg/dL LAB CHEMISTRY METHOD 07/09/2025 10:[address] [facility] AST (SGOT) 25 10 - 42 unit/L LAB CHEMISTRY METHOD 07/09/2025 10:[address] [facility] ALT (SGPT) 24 10 - 60 unit/L LAB CHEMISTRY METHOD 07/09/2025 10:[address] [facility] Alkaline Phosphatase 137(H) 42 - 121 unit/L LAB CHEMISTRY METHOD 07/09/2025 10:[address] [facility] Total Protein 8.0 6.0 - 8.0 g/dL LAB CHEMISTRY METHOD 07/09/2025 10:[address] [facility] Albumin 3.9 3.2 - 5.0 g/dL LAB CHEMISTRY METHOD 07/09/2025 10:56 AM EDT [facility] Total Bilirubin 0.5 0.0 - 1.4 mg/dL LAB CHEMISTRY METHOD 07/09/2025 10:56 AM EDT [facility] Blood Venous blood specimen / Unknown Venipuncture / Unknown 07/09/2025 8:17 AM EDT 07/09/2025 8:17 AM EDT us Kym Severino MD LAB BLOOD ORDERABL ES Final Result [facility] [address] [place] [address], [place] [phone] * COLONOSCOPY Anesthesia - MAC; [facility] ENDOSCOPY (03/05/2025 2:54 PM EDT) Anatomical Region Laterality Modality Endoscopy 03/05/2025 2:36 PM EDT Impressions 03/05/2025 2:59 PM EDT - One 11 mm polyp in the cecum, removed piecemeal using a hot snare. Resected and retrieved. Clip (MR conditional) was placed. Clip manager of tax: [employer]. - The examination was otherwise normal on direct and retroflexion views. Recommendation: - Await pathology results. - Repeat colonoscopy in 6 months for surveillance. Narrative 03/05/2025 2:59 PM EDT [facility] GI Patient Name: Brenda Bowles Procedure Date: 03/05/2025 2:36 PM Date [...] clip was successfully placed (MR conditional). Clip manager of tax: [employer]. There was no bleeding at the end of the procedure. The polyp was adjacent (1 cm to the right of) the appendiceal orifice and it seemed a bit firm and infiltrative but it appeared to be fully removed with the second snare. The exam was otherwise without abnormality on direct and retroflexion views. Procedure Code(s): --- Professional --- 68848, Colonoscopy, flexible; with removal of tumor(s), polyp(s), or other lesion(s) by snare technique Diagnosis Code(s): --- Professional --- Z12.11, Encounter for screening for malignant neoplasm of colon D12.0, Benign neoplasm of cecum CPT copyright 2020 [employer]. All rights reserved. The codes documented in this report are preliminary and upon human services worker review may be revised to meet current compliance requirements. Cliff Zimmerman MD 03/05/2025 2:59:15 PM This report has been signed electronically.Cliff Zimmerman MD Number of Addenda: 0 Note Initiated On: 03/05/2025 2:36 PM Scope In: Scope Out: Endoscopy Department at [facility] - [address] [place] [phone] Procedure Note Cliff Zimmerman MD - 03/05/2025 [facility] GI Patient Name: Brenda Bowles Procedure Date: 03/05/2025 2:36 PM Date [...] clip was successfully placed (MR conditional). Clip manager of tax: [employer]. There was no bleeding at the end of the procedure. The polyp was adjacent (1 cm to the right of) the appendiceal orifice and it seemed a bit firm and infiltrative but it appeared to be fully removedwith the second snare. The exam was otherwise without abnormality ondirect and retroflexion views. Procedure Code(s): --- Professional --- 67248, Colonoscopy, flexible; with removal of tumor(s), polyp(s), or other lesion(s) by snare technique Diagnosis Code(s): --- Professional --- Z12.11, Encounter for screening for malignantneoplasm of colon D12.0, Benign neoplasm of cecum CPT copyright 2020 [employer]. All rights reserved. The codes documented in this report are preliminary and upon human services worker reviewmay be revised to meet current compliance requirements. Cliff Zimmerman MD 03/05/2025 2:59:15 PM This report has been signed electronically.Cliff Zimmerman MD Number of Addenda: 0 Note Initiated On: 03/05/2025 2:36 PM Scope In: Scope Out: Endoscopy Department at [facility] - [address] [place] [phone] IMPRESSION: - One 11 mm polyp in the cecum, removed piecemeal using a hot snare. Resected and retrieved. Clip (MR conditional) was placed. Clip manager of tax: [employer]. - The examination was otherwise normal on directand retroflexion views. Recommendation: - Await pathology results. - Repeat colonoscopy in 6 months forsurveillance. us Cliff Zimmerman MD GI~PROCEDURE ORDERABLES Fin al Result * MG Mammo Digital Screening w Abdulaziz bilat (02/05/2025 6:16 PM EDT) Anatomical Region Laterality Modality Breast Bilateral Mammography 02/06/2025 4:06 PM EDT Impressions 02/06/2025 4:09 PM EDT No mammographic evidence of malignancy. BI-RADS CATEGORY: 1 - NEGATIVE RECOMMENDATION: Screening bilateral mammogram is recommended in 1 year. Mammo Location: [facility], [address] [place] [address], [phone], . -------- FINAL REPORT -------- Dictated By: Yuli Gaitan Dictated Date: 02/06/2025 16:06 ET Assigned Physician: Yuli Gaitan Reviewed and Electronically Signed By: Yuli Gaitan Signed Date: 02/06/2025 16:09 ET Workstation ID: [id number] Transcribed By: Self Edit Transcribed Date: 02/06/2025 [...] is recommended in 1 year. Mammo Location: [facility], [address] [place] [address], [id number], . -------- FINAL REPORT -------- Dictated By: Yuli Gaitan Dictated Date: 02/06/2025 16:06 ET Assigned Physician: Yuli Gaitan Reviewed and Electronically Signed By: Yuli Gaitan Signed Date: 02/06/2025 16:09 ET Workstation ID: [id number] Transcribed By: Self Edit Transcribed Date: 02/06/2025 16:06 ET Kym Severino MD IMG BI PROCEDURES Final Result * Depression Screening (10/02/2023) Pathologist [facility] Depression Screening Abstracted Historical Provider HEALTH MAINTENANCE Final Result * Cervical Cancer Screening: HPV (02/14/2022) [facility] Cervical Cancer Screening: HPV Negative, abstracted Historical Provider HEALTH MAINTENANCE Final Result * Hepatitis C Screening (07/30/2014) Pathologist [facility] Hepatitis C Screening Abstracted us Historical Provider HEALTH MAINTENANCE Final Result from Last 3 Months or Most Recently Relevant to Health Maintenance Insurance [employer] MEDICARE Member Subscriber Plan / Payer (Ef fective 2022-Present) Name:BRENAD BOWLES Relation to Subscriber:Self Name:Brenda Bowles Payer ID:[id number] Group ID:[id number] Type:Not on file Address: [place] [address] [address] [phone] Care Teams Ecologist Technician Relationship Specialty Start Date End Date Kym Severino MD [address] [place] [phone] PCP - General Internal Medicine 05/22/22
--- OUTSIDE RECORDS SUMMARY | 2025-08-06 18:42 | XMS_ITS | Clinical Summary ---
Author Organization [facility] Address [address] [place] [address] Phone Care Team Providers Care Philanthropy Officer Name Role Phone Kym Severino MD Primary Care Prov ider Allergies Active Allergy Reactions Criticality Noted Date Comments Adhesive Tape-Silicones 02/23/2016 Allergic to surgical tape /skin sam Loratadine 10/21/2012 tachycardia Povidone-Iodine Rash Low 02/23/2016 Carbamazepine Swelling 12/02/2023 Albuterol Unknown 08/21/2017 Medications OMEPRAZOLE ORAL Acti ve acetaminophen (TYLENOL ARTHRITIS ORAL) Acti ve cholecalciferol , vitamin D3, (VITAMIN D3 ORAL) Active lidocaine 4 % Place 1 patch onto the skin daily. 10 patch 05/01/2018 Active aspirin 81 MG EC tablet Take 81 mg by mouth daily. Active orphenadrine (NORFLEX) 100 mg tablet Take 1 tablet (100 mg total) by mouth 2 (two) times a day as needed for pain (specific location in comments). 20 tablet 03/09/2025 Active Social History Tobacco Use Types Packs/Day Years [...] got money to buy more. Never True 03/09/2025 Within the past 6 months the food we bought just didn't last and we didn't have enough money to get more. Never True Residential Stability Answer Date Recor ded What is your housing situation today? I have martha sing 03/09/2025 How many times have you move d in the past 12 months? Zero (I did not move) 03/09/2025 Paying for Meds Answer Date Recorded Do you have trouble paying for medicines? No 03/09/2025 Paying Utility Bills Answer Date Record ed Do you have trouble paying your heating or elect ricity bill? No 03/09/2025 Transportation Answer Date Recorded Has the lack of transportati on kept you from medical appointments or from getting medications? No 03/09/2025 Digital Access Answer Date Recorded No 03/09/2025 Yes 03/09/2025 Do you have reliable internet access at home? Ye s 03/09/2025 Do you have a device (e.g., phone, tablet, computer) with a working camera? Yes 03/09/2025 Intimate Partner Violence Answer Date R ecorded Are you denied basic needs s uch as food, clothing, or medical care? No 03/09/2025 In the past 12 months have y ou been in a relationship with a person who hurts, threatens, or tries to control you? No 03/09/2025 Are you denied basic needs s uch as food, clothing, or medical care? No 03/09/2025 In the past 12 months have y ou been in a relationship with a person who hurts, threatens, or tries to control you? No 03/09/2025 Comments No Sex and Gender Information Value Date Recorded Sex Assigned at Female 10/29/2017 9:38 AM EST Legal Sex Female 9:46 PM EDT Gender Identity Female 10/29/2017 9:38 AM EST Sexual Orientation Straight 10/29/2017 9: 38 AM EST Last Filed Vital Signs Vital Sign Reading Time Taken Comments Blood Pressure 145/61 03/09/2025 7:00 PM EDT Pulse 69 03/09/2025 5:21 PM EDT Temperature 36.2 C (97.2 F) 03/09/2025 7:00 PM EDT Respiratory Rate 16 03/09/2025 7:20 PM EDT Oxygen Saturation 100% 03/09/2025 7:00 PM EDT Inhaled Oxygen Concentration - - Weight 75.8 kg (167 lb) 03/09/2025 5:21 PM EDT Height 158.8 cm (5' 2.5 ) 02/11/2025 1:24 PM EDT Body Mass Index 30.06 02/11/2025 1:24 PM EDT Plan of Treatment Health Maintenance Due Date Last Done Comments DEPRESSION SCREENING 1973 HEPATITIS C SCREENING 1979 HIV ONE-TIME SCREENING (18-65 YEARS) 1979 PAP SMEAR 1982 COLOGUARD 2006 COLONOSCOPY 2006 COLORECTAL CANCER SCREENING 2006 FIT TEST 2006 FOBT 2006 SIGMOIDOSCOPY 2006 VIRTUAL COLONOSCOPY 2006 PNEUMOCOCCAL VACCINES (50+ years) (1 of 1 - PCV) 2011 ZOSTER VACCINES (2 of 2) 09/17/2020 07/23/2020 Adult Td,Tdap Booster 10/21/2022 10/21/2012 INFLUENZA VACCINE (#1) 2025 , 08/06/2019, 08/09/2014, Additional history exists COVID-19 VACCINE (2 - 2024- season) 2025 01/21/2021 MAMMOGRAM 02/05/2027 02/05/2025, 02/05/2025 SCREENING FOR DIABETES 03/09/2028 03/09/2025 LIPID PANEL 02/05/2030 02/05/2025, 02/02/2025 RSV VACCINE (1 - 1-dose 75+ series) 2036 SMOKING STATUS SCREENING (Once After 26 Yrs) Completed 02/11/2025 HEPATITIS A VACCINES Aged Out No long er eligible based on patient's age to complete this topic HIB VACCINES Aged Out No longer eligi ble based on patient's age to complete this topic MENINGOCOCCAL VACCINES (ACWY) Aged Out No longer eligible based on patient's age to complete this topic MENINGOCOCCAL VACCINES (B) Aged Out N o longer eligible based on patient's age to complete this topic Medical Devices Not on file Insurance MEDICARE PART A & B CARE MEDICARE REPLACEMENT IRLANDA YEAGER [facility] MEDICARE PART A & B CARE MEDICARE REPLACEMENT IRLANDA YEAGER [facility] MEDICARE PART A & B MEDICARE PART A & B MEDICARE PART A & B ONE CARE MEDICARE REPLACEMENT IRLANDA YEAGER [id number] MEDICARE PART A & B Member Subscriber Plan / Payer (Ef fective 2014-Present) Name:Brenda Bowles Member ID:[id number] Relation to Subscriber:Self Name:Brenda Bowles Subscriber ID:[id number] Payer ID:[id number] Group ID:Not on file Type:Medicare Address: [employer] [address] MEDICARE PART A & B [facility] ONE CARE MEDICARE REPLACEMENT MEDICARE PART A & B [facility] ONE CARE MEDICARE REPLACEMENT MEDICARE PART A & B [facility] ONE CARE MEDICARE REPLACEMENT Care Teams Philanthropy Officer Relationship Specialty Start Date End Date Kym Severino MD [address] [place] [phone] PCP - General Internal Medicine 05/19/24 Additional Source Comments The information contained in this document represents components of the legal health record. It is not the complete legal health record.[facility]
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
== END 2025-08-06 15:36 | disposition home or self-care (01) ==
PROVIDERS: PCP Internal Medicine; Visit Provider Physician Assistant Medical
DX: H00.021 Hordeolum internum right upper eyelid (principal); L03.213 Periorbital cellulitis

== ENCOUNTER → 2025-08-06 14:51 | Outpatient (BNVA) | payer OTHER, SELFPAY | PROVIDERS: PCP Internal Medicine; Visit Provider Physician Assistant Medical | DX: H00.021 Hordeolum internum right upper eyelid (principal); L03.213 Periorbital cellulitis | CPT/HCPCS: 99212 ==